=== PATIENT | male | born 1950 | race Caucasian/White ===

== ENCOUNTER 2019-01-16 09:27 | Day surgery (SDC) | payer MEDICARE, BC ==
[2019-01-16] VITALS (12 sets, daily range): BP systolic 107–133; BP diastolic 66–98; PULSE 56–67; TEMP 98.1
[~2019-01-16] VITALS: Ht 183 cm; Wt 140.6 kg
[2019-01-16] MEDS ORDERED: LOPRESSOR 225 MG/TAB PO (09:42)
[2019-01-16] MEDS ORDERED: CARDIZEM CD 18180 MG PO (09:42)
[2019-01-16] MEDS ORDERED: ELIQUIS 5MG PO (09:43)
[2019-01-16] MEDS ORDERED: MASON NATURAL1200 MG PO (09:44)
[2019-01-16] MEDS ORDERED: ARTIFICIAL TEA3.5 GM OP (09:44)
[2019-01-16] MEDS ORDERED: THE MEDICINE S200 M2 PO (09:45)
[2019-01-16] MEDS ORDERED: CALCIUM CARBON650 M2 PO (09:45)
[2019-01-16] MEDS ORDERED: NITROSTAT0.4 MG/TAB SL (09:46)
[2019-01-16] MEDS ORDERED: MUCINEX1200 MG PO (09:56)
[2019-01-16] MEDS ORDERED: BENADRYL25 M2 PO (09:57)
[2019-01-16 09:59] LABS: HEMATOCRIT 48.2 % (42.0-52.0); HEMOGLOBIN 16.5 g/dl (13.5-18.0); MEAN CELL VOLUME 87 fl (80.0-100.0); MEAN CORPUSCULAR HEMOGLOBIN 30 pg (27.0-31.0); MEAN CORPUSCULAR HGB CONC 34 g/dl (33.0-37.0); MEAN PLATELET VOLUME 10.4 fl (7.4-10.4); PLATELET COUNT 169 K/mm3 (130-400); RED BLOOD COUNT 5.54 M/mm3 (4.20-5.60); REDCELL DISTRIBUTION WIDTH-CV 12.9 % (11.5-14.5)
[2019-01-16 10:01] LABS: PROTHROMBIN TIME 11.8 SECONDS (9.7-12.8)
[2019-01-16 10:05] LABS: CALCIUM 9.1 mg/dL (8.4-10.2); CREATININE, serum 0.87 mg/dL (0.66-1.25); POTASSIUM 4.3 mmol/L (3.4-5.0)
[2019-01-16] MEDS ORDERED: ASPIRIN 81M81 MG/TA2 PO (10:33)
--- NOTE | 2019-01-16 11:05 | NUR ---
pt to procedure
--- NOTE | 2019-01-16 11:22 | NUR ---
ALL SEDATION MEDICATIONS WILL BE GIVEN DURING PROCEDURE WITH VERBAL ORDER FROM MD. SEE MERGE FOR ADMIN TIMES. SEE MERGE FOR RASS AND MODERATE SEDATION ASSESSMENTS DURING AND POST PROCEDURE.
--- NOTE | 2019-01-16 16:30 | NUR ---
Discharge instructions given to pt.Pt verbalizes understanding.INT removed,catheter tip intact.
--- NOTE | 2019-01-16 16:37 | NUR ---
Pt escorted out via wheelchair by this nurse.
== END 2019-01-16 16:48 | disposition home or self-care (01) ==
LOC: COL.CAR 09:27
PROVIDERS: Internal Medicine Cardiovascular Disease
DX: I25.10 Atherosclerotic heart disease of native coronary artery without angina pectoris (principal); I48.1 Persistent atrial fibrillation; I10 Essential (primary) hypertension; E78.01 Familial hypercholesterolemia; Z79.82 Long term (current) use of aspirin; Z88.8 Allergy status to other drugs, medicaments and biological substances; Z88.6 Allergy status to analgesic agent; Z79.01 Long term (current) use of anticoagulants; Z82.49 Family history of ischemic heart disease and other diseases of the circulatory system
CPT/HCPCS: C1769; J1644; J2250; J3010; Q9967